=== PATIENT | male | born 1975 | race African-American/Black ===

== ENCOUNTER 2017-12-10 03:01 | Emergency (ER) | payer OTHER ==
[~2017-12-10] VITALS: Ht 180.3 cm; Wt 93.0 kg
[~2017-12-10 03:01] MED LIST: NOHOMEMEDICATIONS
[2017-12-10] MEDS ORDERED: KEFLEX500 M1 PO (04:57)
[2017-12-10] MEDS ORDERED: TRAMADOL 50 MG50 MG PO (04:57)
[2017-12-10 05:40] VITALS: BP 108/67
== END 2017-12-10 05:44 | disposition home or self-care (01) ==
LOC: ER 03:01
DX: S56.921A Laceration of unspecified muscles, fascia and tendons at forearm level, right arm, initial encounter (principal); W25.XXXA Contact with sharp glass, initial encounter; Y93.89 Activity, other specified; Y92.89 Other specified places as the place of occurrence of the external cause; Y99.8 Other external cause status